=== PATIENT | male | born 1945 | race Caucasian/White ===

== ENCOUNTER 2019-09-03 12:27 | Outpatient (CLI) | payer MEDICARE, OTHER, SELFPAY ==
--- NOTE | ~2019-09-03 | XR_ITS ---
XR cervical spine 4-5V 09/03/2019 12:43 Indication: Neck pain. Spinal stenosis. Procedure: 5 views of the cervical spine Comparison: No prior studies for comparison. Findings: There is reversal of cervical lordosis centered at C4. There is degenerative anterolisthesi s at C3-4 and retrolisthesis at C5-6. Odontoid process within normal limits. There is moderate-severe multilevel uncinate and facet hypertrophy. Lung apices are unremarkable. There is carotid atheroscle rosis. No fracture or traumatic malalignment. Impression: 1: Severe cervical spondylosis. Reviewed, dictated and finalized at location A. [employer] [employer]CH[employer] Impression: 1: Severe cervical spondylosis.
== END 2019-09-03 12:28 | disposition home or self-care (01) ==
PROVIDERS: Visit Provider Neurological Surgery
DX: G56.22 Lesion of ulnar nerve, left upper limb (principal); M48.02 Spinal stenosis, cervical region; M47.812 Spondylosis without myelopathy or radiculopathy, cervical region
CPT/HCPCS: 72050

== ENCOUNTER 2025-01-07 00:11 | Day surgery (SDC) | payer MEDICARE, SELFPAY ==
[2024-12-23 09:33] VITALS: BMI 27.3
--- NOTE | 2024-12-29 10:56 | PC.NURSE ---
Spoke with _PATIENT_ regarding medication _ELIQUIS. _PATIENT_verbalizes understanding that the last dose is to be taken on _01/03/25_ and the Endoscopist will instruct them when to restart after the procedure.
[2025-01-07 06:57] VITALS: BP 131/75; PULSE 59; RESP 19; TEMP 36.6; O2SAT 99
[2025-01-07] MEDS: LACTATED RINGERS 1,000 ML 150 ML IV CONT (07:11)
--- NOTE | 2025-01-07 07:26 | WPDANESEPPF ---
Anes - Initial Pre Proc Eval Procedure: Operation Date: 01/07/25 08:00 Proposed Procedures p Colonoscopy - Tyler Lopez MD Date/Time: 01/07/25 07:26 Surgeon: Tyler Lopez MD Pre Op Diagnosis: Constipation, unspecified, Melena Patient Data Age: 79 Gender: M Height: 1.73 m Weight: 81.3 kg Last Vital Signs Temp 36.6 C 01/07/25 06:57 Pulse 59 L 01/07/25 06:57 Resp 19 01/07/25 06:57 BP 131/75 01/07/25 06:57 Pulse Ox 99 01/07/25 06:57 O2 Del Method Room Air 01/07/25 06:57 Allergies Allergy/AdvReac Type Severity Reaction Status Date / Time Iodinated Contrast Media AdvReac rash Verified 01/07/25 06:54 Home Medications ?Medication ?Instructions ?Recorded ?Confirmed ?Type albuterol sulfate 90 mcg/actuation 1 inh inhalation DAILY PRN 12/23/24 12/23/24 History aerosol inhaler shortness of breath or wheezing alfuzosin 10 mg tablet,extended 10 mg PO DAILY 12/23/24 01/07/25 History release 24 hr apixaban 5 mg tablet (Eliquis) 5 mg PO BID 12/23/24 01/07/25 History azelastine 137 mcg (0.1 %) nasal 2 spray intranasal BID 12/23/24 12/23/24 History spray bempedoic acid 180 mg-ezetimibe 10 1 tablet PO DAILY 12/23/24 01/07/25 History mg tablet (Nexlizet) budesonide-formoterol HFA 160 2 puff inhalation BID 12/23/24 01/07/25 History mcg-4.5 mcg/actuation aerosol inhaler clonazepam 0.5 mg tablet 0.5 mg PO DAILY 12/23/24 01/07/25 History duloxetine 30 mg capsule,delayed 30 mg PO DAILY 12/23/24 01/07/25 History release ergocalciferol (vitamin D2) 1,250 50,000 unit PO MONTHLY 12/23/24 01/07/25 History mcg (50,000 unit) capsule flecainide 100 mg tablet 100 mg PO BID 12/23/24 01/07/25 History fluticasone propionate 50 2 spray intranasal BID 12/23/24 12/23/24 History mcg/actuation nasal spray,suspension metoprolol succinate 25 mg 25 mg PO DAILY 12/23/24 01/07/25 History tablet,extended release 24 hr midodrine 5 mg tablet 5 mg PO TID PRN if systolic drops 12/23/24 12/23/24 History below 100 nitroglycerin 0.4 mg sublingual 0.4 mg sublingual Q5M PRN chest 12/23/24 12/23/24 History tablet pain omeprazole 40 mg capsule,delayed 40 mg PO DAILY 12/23/24 01/07/25 History release vibegron 75 mg tablet (Gemtesa) 75 mg PO DAILY 12/23/24 01/07/25 History Patient hx anesthesia problems: none Family hx anesthesia problems: other (adverse rx to opioids) Results Review: All pre-operative results and documents have been reviewed as part of the pre-operative evaluation. [facility] Social History Social History Smoking status: Former smoker Tobacco type: cigarettes Alcohol intake: current Drinks per week: 15 Substance use type: does not use Living arrangements: with family Spiritual care concerns: No Anes - Eval Final PreProcedure Day of Procedure 01/07/25 07:26 Patient weight: overweight Heart: regular rate and rhythm Lungs: decreased breath sounds Airway: Mallampati scale class II Neurological: alert and oriented Last oral intake: >/= 8 hours ASA classification: III Emergent: no Anesthetic plan: proceed Anesthesia type and monitoring: general GIVS and standard monitoring Results Review: All pre-operative results and documents have been reviewed as part of the pre-operative evaluation. Informed Consent: The patient's anesthetic plan and its attendant risks and benefits were discussed with the patient/family/POA. Questions were solicited and answers provided to the satisfaction of the patient/family/POA.
--- NOTE | 2025-01-07 07:57 | PM.IMHP ---
H&P: HPI History of Present Illness Date/Time: 01/07/25 07:57 Chief Complaint: History of colon polyps Narrative: The patient has a history of colonic polyps, the last colonoscopy was more than 10 years ago. Review of Systems Review of Systems: All systems reviewed & are unremarkable except as noted in HPI and below PMFSH Social History Social History Smoking status: Former smoker Tobacco type: cigarettes Alcohol intake: current Drinks per week: 15 Substance use type: does not use Living arrangements: with family Spiritual care concerns: No Meds Home Medications and Allergies Home Medications ?Medication ?Instructions ?Recorded ?Confirmed ?Type albuterol sulfate 90 mcg/actuation 1 inh inhalation DAILY PRN 12/23/24 12/23/24 History aerosol inhaler shortness of breath or wheezing alfuzosin 10 mg tablet,extended 10 mg PO DAILY 12/23/24 01/07/25 History release 24 hr apixaban 5 mg tablet (Eliquis) 5 mg PO BID 12/23/24 01/07/25 History azelastine 137 mcg (0.1 %) nasal 2 spray intranasal BID 12/23/24 12/23/24 History spray bempedoic acid 180 mg-ezetimibe 10 1 tablet PO DAILY 12/23/24 01/07/25 History mg tablet (Nexlizet) budesonide-formoterol HFA 160 2 puff inhalation BID 12/23/24 01/07/25 History mcg-4.5 mcg/actuation aerosol inhaler clonazepam 0.5 mg tablet 0.5 mg PO DAILY 12/23/24 01/07/25 History duloxetine 30 mg capsule,delayed 30 mg PO DAILY 12/23/24 01/07/25 History release ergocalciferol (vitamin D2) 1,250 50,000 unit PO MONTHLY 12/23/24 01/07/25 History mcg (50,000 unit) capsule flecainide 100 mg tablet 100 mg PO BID 12/23/24 01/07/25 History fluticasone propionate 50 2 spray intranasal BID 12/23/24 12/23/24 History mcg/actuation nasal spray,suspension metoprolol succinate 25 mg 25 mg PO DAILY 12/23/24 01/07/25 History tablet,extended release 24 hr midodrine 5 mg tablet 5 mg PO TID PRN if systolic drops 12/23/24 12/23/24 History below 100 nitroglycerin 0.4 mg sublingual 0.4 mg sublingual Q5M PRN chest 12/23/24 12/23/24 History tablet pain omeprazole 40 mg capsule,delayed 40 mg PO DAILY 12/23/24 01/07/25 History release vibegron 75 mg tablet (Gemtesa) 75 mg PO DAILY 12/23/24 01/07/25 History Allergies Allergy/AdvReac Type Severity Reaction Status Date / Time Iodinated Contrast Media AdvReac rash Verified 01/07/25 06:54 Vital Signs Vital Signs - 24 hr 01/07/25 06:57 Temperature 98 F Pulse Rate 59 L Respiratory Rate 19 Blood Pressure 131/75 Pulse Oximetry 99 Oxygen Delivery Room Air Exam Const: General: cooperative and healthy appearing Resp: Effort & Inspection: normal respiratory effort and able to speak in complete sentences Auscultation: clear to auscultation bilaterally Cardio: Rate: regular rate Rhythm: regular rhythm GI: Inspection: normal to inspection GI Palp: No No hepatosplenomegaly present Auscultation: normal bowel sounds Rectal Exam: deferred Skin: General skin exam: normal color Psych: Appearance: grossly normal Mental Status: mental status grossly normal Assessment and Plan Assessment and plan (1) History of colonic polyps: Code(s): Z86.0100 - Personal history of colon polyps, unspecified Status: Acute Assessment and Plan: The patient is deemed a good candidate for the procedure. Consent signed. Will proceed.
--- NOTE | 2025-01-07 08:20 | S_PTH ---
PATIENT: Nito Sharma LOC: [facility]#:[id number] AGE/SX: 79/M ROOM: RE01/07/[address]: Tyler Lopez MD : 1945 BED: DIS: 01/07/2025 SPEC #: [id number] RECD: 01/07/25 10:41 STATUS: JENNIFER REQ #: [id number] GOLDY: 01/07/25 08:[address]: Tyler Lopez DEPT: [facility] Surgical RECD BY: Chiara Godwin Tissues: A - Colon Polypectomy Procedures: Hematoxylin and Eosin Stain Gross and Microscopic Level 4
[2025-01-07 08:28] VITALS: BP 127/58; PULSE 55; RESP 23; O2SAT 100
[2025-01-07 08:38] VITALS: BP 118/89; PULSE 54; RESP 18; O2SAT 97
[2025-01-07 08:48] VITALS: BP 157/71; PULSE 50; RESP 17; O2SAT 100
== END 2025-01-07 09:11 | disposition home or self-care (01) ==
PROVIDERS: Visit Provider Internal Medicine Gastroenterology
PROC: 0DJD8ZZ Inspection of Lower Intestinal Tract, Via Natural or Artificial Opening Endoscopic (ICD-10-PCS; CPT 45378; principal; 2025-01-07 08:00)
DX: Z12.11 Encounter for screening for malignant neoplasm of colon (principal); D12.3 Benign neoplasm of transverse colon; K57.30 Diverticulosis of large intestine without perforation or abscess without bleeding; Z79.51 Long term (current) use of inhaled steroids; Z79.01 Long term (current) use of anticoagulants; Z87.891 Personal history of nicotine dependence
CPT/HCPCS: 45385; 88305; J2003; J2704; J7120